=== PATIENT | male | born 1980 | race African-American/Black ===

== ENCOUNTER 2020-04-08 08:02 | Emergency (ER) | payer OTHER ==
[~2020-04-08] VITALS: Ht 175.3 cm; Wt 77.1 kg
[2020-04-08 08:14] VITALS: TEMP 99.8
[2020-04-08 08:42] LABS: POTASSIUM 4.2 mmol/L (3.6-5.2); SODIUM 141 mmol/L (136-145)
[2020-04-08 09:03] LABS: PARTIAL THROMBOPLASTIN TIME 26.3 SECONDS (24.5-33.6)
[2020-04-08 09:46] LABS: PLATELET COUNT 204 K/uL (142-355)
[2020-04-08 10:23] VITALS: BP 123/68
== END 2020-04-08 10:34 | disposition home or self-care (01) ==
LOC: ED 08:02
PROVIDERS: Family Medicine
DX: R00.1 Bradycardia, unspecified (principal); R07.89 Other chest pain; M94.0 Chondrocostal junction syndrome [Tietze]
CPT/HCPCS: 36415; 80053; 81000; 82550; 84484; 85027; 85379; 85610; 85730; 93005; 99284

== ENCOUNTER 2022-08-22 13:15 | Emergency (ER) | payer OTHER ==
[~2022-08-22] VITALS: Ht 175.3 cm; Wt 72.6 kg
[2022-08-22 15:05] VITALS: BP 127/82; TEMP 98.2
== END 2022-08-22 15:05 | disposition home or self-care (01) ==
LOC: ED 13:15
DX: B34.9 Viral infection, unspecified (principal); J20.9 Acute bronchitis, unspecified; U07.1 COVID-19
CPT/HCPCS: 87502; 87635; 87651; 99283; U0003